=== PATIENT | female | born 1955 | race Caucasian/White ===

== ENCOUNTER 2019-11-23 20:47 | Inpatient (IN) | payer OTHER ==
[~2019-11-23] VITALS: Ht 149.9 cm; Wt 56.9 kg
--- NOTE | 2019-11-23 21:53 | NUR ---
PT ARRIVES TO ED WITH LOWER ABD PAIN, AND SOB. PT REPORTS SHE FEELS VERY DISTENDED. PT REPORTS SHE HAS HAD A PARACENTISIS BEFORE BUT THIS FEELS DIFFERENT. PT REPORTS THAT IT IS DIFFICULT TO TAKE A DEEP BREATH. PT DENIES TRAUMA OR CHEST PAIN. PT CONNECTED TO MONITRS AND PIV PLACED AND LABS DRAWN. CALL LIGHT IN REACH AND FALL PRECAUTIONS IN PLACE.
[2019-11-23 22:23] LABS: ALBUMIN 2.2 g/dL (3.4-5.0); ANION GAP 8 mmol/L (5-15); CALCIUM 9.9 mg/dL (8.5-10.1); CHLORIDE 97 mmol/L (98-107)
[2019-11-23 22:26] LABS: ALANINE AMINOTRANSFERASE 49 U/L (12-78); ALKALINE PHOSPHATASE 255 U/L (45-117); BILIRUBIN,TOTAL 6.8 mg/dL (0.2-1.0); CREATININE 0.99 mg/dL (0.55-1.02); TOTAL PROTEIN 7.1 g/dL (6.4-8.2)
[2019-11-23 22:27] LABS: INTERNATIONAL NORMALIZED RATIO 1.28 (0.93-1.1); PROTHROMBIN TIME 13.6 Seconds (9.6-11.5)
[2019-11-23 22:31] LABS: BASOPHILS # (AUTO) 0.06 x10^3/uL (0-0.1); BASOPHILS % (AUTO) 1 % (0-1); EOSINOPHILS # (AUTO) 0.21 x10^3/uL (0-0.4); EOSINOPHILS % (AUTO) 3 % (1-7); LYMPHOCYTES # (AUTO) 0.95 x10^3/uL (1-3.4); LYMPHOCYTES % (AUTO) 11 % (22-44); MD MORPH REVIEW ONLY; MEAN CORPUSCULAR HEMOGLOBIN 36.3 pg (27.0-34.8); MEAN CORPUSCULAR VOLUME 106.7 fL (80-100); MONOCYTES # (AUTO) 1.18 x10^3/uL (0.2-0.8); MONOCYTES % (AUTO) 14 % (2-9); NEUTROPHILS # (AUTO) 6.12 x10^3/uL (1.8-6.8); NEUTROPHILS % (AUTO) 72 % (42-75); PLATELET COUNT 145 x10^3/uL (130-400); RED BLOOD COUNT 3.12 x10^6/uL (3.82-5.3); RED CELL DISTRIBUTION WIDTH 16.1 % (9.6-15.2)
[2019-11-23 22:44] LABS: <PLATELET ESTIMATE> ADEQUATE; ANISOCYTOSIS 1+
[2019-11-23] MEDS ORDERED: SODIUM CHLORIDE 0.9% 1,000ML IVBOLUS ONE (23:30)
--- NOTE | 2019-11-23 23:35 | NUR ---
pT MEDICATED PER EMAR, GIVEN WA BLANKET.
--- NOTE | 2019-11-24 00:04 | NUR ---
Report recevied from ELSIE Nicholas. This RN to assume care.
--- NOTE | 2019-11-24 00:04 | NUR ---
Report to Shayy ZIMMERMAN, informed of low bp earlier and need for repeat vitals once fluid bolus is complete. Informed pt has prominent right pleural effusion.
[2019-11-24] MEDS ORDERED: CEFTRIAXONE PMX 1GM/50ML 50 ML IVPB ONE (00:30)
[2019-11-24] MEDS ORDERED: AZITHROMYCIN 500 MG in SODIUM CHLORIDE 0.9% 250 ML IVPB ONE (00:30)
[2019-11-24] MEDS ORDERED: CEFTRIAXONE PMX 1GM/50ML 50 ML ONE (00:52)
--- NOTE | 2019-11-24 01:14 | NUR ---
unable to do CT until 0200. waiting for covid terminal clean CT room 1.
--- NOTE | 2019-11-24 01:50 | NUR ---
BREAK RN: PT MEDICATED PER EMAR. 5 RIGHTS ADDRESSED. PT DENIES ANY NEEDS AT THIS TIME. ALL VITALS STABLE. WILL CONTINUE TO MONITOR
--- NOTE | 2019-11-24 01:59 | NUR ---
BREAK RN: HOSPITALIST AT BEDSIDE EVALUATING PT
[2019-11-24] MEDS ORDERED: OMNIPAQUE 350 MG/ML, 100ML BOTTLE ONE (02:26)
[2019-11-24 02:47] LABS: CULTURE INDICATED? YES; MICROSCOPIC INDICATED
[2019-11-24] MEDS ORDERED: FUROSEMIDE 40 MG/4 ML IV ONE (03:30)
[2019-11-24] MEDS ORDERED: LORazepam 2 MG/ML, 1ML ONE (04:21)
--- NOTE | 2019-11-24 04:27 | NUR ---
PT RESTING IN BED, ATIVAN GIVEN PER DR LOZANO FOR ANXIETY, PT REFUSING IV LASIX AT THIS TIME, WOULD LIKE OT TRY TO SLEEP A BIT.
[2019-11-24] MEDS ORDERED: LORazepam 2 MG/ML, 1ML IVPush ONE (04:30)
[2019-11-24] MEDS ORDERED: DILTIAZEM 5 MG/ML, 5ML ONE (05:03)
--- NOTE | 2019-11-24 05:13 | NUR ---
Patient's WOB increasing, HR increasing. CT results back. Contacted Dr. Souza regarding patient's condition who came down to see patient. Suggested optiflow and asked about potential IR intervention in the am. Harley ordered Cardizem, 20mg IVP. No other orders.
[2019-11-24] MEDS ORDERED: DILTIAZEM 5 MG/ML, 5ML IVPush ONE (05:30)
--- NOTE | 2019-11-24 06:17 | NUR ---
Patient placed on optiflow by RT. 50% O2 on 40 lpm. Patient tolerating.
[2019-11-24] MEDS ORDERED: SUCCINYLCHOLINE 20 MG/ML, 10ML IVPush ONE (07:30)
[2019-11-24] MEDS ORDERED: ETOMIDATE 20 MG/10 ML IVPush ONE (07:30)
[2019-11-24 07:33] LABS: O2 FLOW 35 L/min
--- NOTE | 2019-11-24 07:35 | NUR ---
RECEIVED REPORT FROM SIMONE. PT UP RIGHT ON GURNEY SLEEPING, NAD WITH EQUAL CHEST RISE/FALL, OPTIFLOW IN PLACE, NO NEEDS AT THIS TIME, CALL LIGHT WITHIN REACH,
--- NOTE | 2019-11-24 07:40 | NUR ---
MOVED PATIENT TO ROOM 39 FOR INTUBATION.
[2019-11-24] MEDS ORDERED: LIDOCAINE 1%, 10ML ONE (07:58)
--- NOTE | 2019-11-24 08:00 | NUR ---
RT AT BS, PT MEDICATED PRIOR TO ETT PLACEMENT BY DR CANAS, 7.5MM ETT PLACED AT 25CM TO TOOTHLINE, HOB AT 30 DEG, PT CALM AT THIS TIME.
[2019-11-24] MEDS ORDERED: MIDAZOLAM HCL 50 MG in SODIUM CHLORIDE 0.9% 40 ML IV PRN (08:02)
[2019-11-24] MEDS ORDERED: FENTANYL PF 100 MCG/2ML ONE ×3 (08:08→09:29)
--- NOTE | 2019-11-24 08:08 | NUR ---
PHARMACY REQUEST SLIP SENT TO PHARMACY FOR VERSED DRIP.
[2019-11-24] MEDS ORDERED: FENTANYL PF 100 MCG/2ML IVPush ONE ×2 (08:30→09:00)
[2019-11-24] MEDS ORDERED: SPIRONOLACTONE 100 MG TABLET PO SCH (09:00)
[2019-11-24] MEDS ORDERED: FUROSEMIDE 40 MG TABLET PO SCH (09:00)
--- NOTE | 2019-11-24 09:25 | NUR ---
SPOKE TO DR ESPINOZA WHILE AWAITING [facility] TO SEE PT, OK TO GIVE 100MG FENTANYL X2 IF PT CONTINUES TO RESIST VENT DESPITE VERSED INFUSION.
--- NOTE | 2019-11-24 09:45 | NUR ---
[facility] AT Addendum: 11/24/19 at 0955 by GODWIN [facility] AT , AWARE OF PT VS.
--- NOTE | 2019-11-24 09:56 | NUR ---
OK TO HOLD DIURETICS AT THIS TIME PER [facility].
[2019-11-24] MEDS ORDERED: ALBUMIN HUMAN 25% 200 ML IV ONE (10:00)
[2019-11-24] MEDS: PROPOFOL 100 ML IV PRN ×2 (10:24→21:37)
[2019-11-24] MEDS ORDERED: SENNA/DOCUSATE TABLET NG PRN (10:30)
[2019-11-24] MEDS ORDERED: LIDOCAINE-MPF 1%, 2ML ENDO PRN (10:30)
[2019-11-24] MEDS ORDERED: DEXTROSE 50%, 50ML SYRINGE IVPush PRN (10:30)
[2019-11-24] MEDS ORDERED: PHARMACY MAY ADJ FOR RENAL FX MC SCH (10:30)
[2019-11-24] MEDS ORDERED: LACTULOSE 20 GM/30 ML UDC NG PRN (10:30)
[2019-11-24] MEDS: NOREPINEPHRINE 8 MG in SODIUM CHLORIDE 0.9% 242 ML IV PRN (10:30)
[2019-11-24] MEDS ORDERED: GLUCAGON 1 MG IM PRN (10:30)
[2019-11-24] MEDS ORDERED: BISACODYL 10 MG SUPP PR PRN (10:30)
[2019-11-24] MEDS ORDERED: ACETAMINOPHEN 650 MG SUPP PR PRN (10:30)
[2019-11-24] MEDS ORDERED: DEXTROSE 4 GM TAB.CHEW PO PRN (10:30)
[2019-11-24] MEDS ORDERED: SENNA 176 MG/5 ML ORAL SOL NG PRN (10:30)
--- NOTE | 2019-11-24 11:05 | NUR ---
PT TOLERATING VENT WITH CURRENT MEDS AT THIS TIME, COMFORT MEASURES PROVIDED, WCT[facility].
--- NOTE | 2019-11-24 11:10 | NUR ---
CALLED IR TO NOTIFY CONSENT IS SIGNED, AWAITING RIGHT THORACENTESIS.
[2019-11-24] MEDS ORDERED: FURO-93 PO (11:33)
[2019-11-24] MEDS ORDERED: VITA1TAB PO (11:33)
[2019-11-24] MEDS ORDERED: SPIR25TA5 PO (11:33)
--- NOTE | 2019-11-24 11:54 | NUR ---
ZAHEER, SOFY FLORES, CONTACT NUMBER [phone].
--- NOTE | 2019-11-24 12:02 | NUR ---
PT CONTINUES TO TOLERATE VENT WITH CURRENT MEDS, COMFORT MEASURES PROVIDED, RESTRAINTS REPOSITIONED, CONRAD DRAINING TO GRAVITY, NGT SUCTIONING WITH LCS, HOB REMAINS ELEVATED.
--- NOTE | 2019-11-24 12:25 | NUR ---
CALLED DR MARTINEZ TO REQUEST CL PLACEMENT BY IR.
--- NOTE | 2019-11-24 13:03 | NUR ---
PT TOLERATING VENT WITH CURRENT MEDS, COMFORT MEASURES PROVIDED, CONRAD DRAINING TO GRAVITY, NGT SUCTIONING WITH LCS, HOB REMAINS ELEVATED.
--- NOTE | 2019-11-24 13:45 | NUR ---
IR AT BS
--- NOTE | 2019-11-24 13:58 | NUR ---
PT TOLERATING VENT WITH CURRENT MEDS, COMFORT MEASURES PROVIDED, CONRAD DRAINING TO GRAVITY, NGT SUCTIONING WITH LCS, HOB REMAINS ELEVATED, PT CALMER AFTER THORACENTESIS.
--- NOTE | 2019-11-24 14:45 | NUR ---
Float RN: Pt linens changed & pt placed on waffle matteress & positioned w/ pillows under elbows & between knees for pt comfort & to prevent skin breakdown
[2019-11-24] MEDS ORDERED: LIDOCAINE 1%-EPI 1:100K, 20ML ONE (15:28)
--- NOTE | 2019-11-24 15:32 | NUR ---
PT CONTINUES TO TOLERATE VENT WITH OCCAS ADJUSTMENTS TO MEDS, COMFORT MEASURES PROVIDED, CONRAD DRAINING TO GRAVITY, NGT SUCTIONING WITH LCS, HOB REMAINS ELEVATED
--- NOTE | 2019-11-24 16:04 | NUR ---
CHEST TUBE TO RIGHT LATERAL CHEST INSERTED BY DR MONTERO, CONTINUOUS WALL SUCTION >80MMHZ, NO AIRLEAKS/BUBBLING DETECTED.
--- NOTE | 2019-11-24 16:16 | NUR ---
DR MONTERO REMAINS AT TP PLACE CL. Addendum: 11/24/19 at [address] MONTERO REMAINS AT TO PLACE CL.
--- NOTE | 2019-11-24 16:46 | NUR ---
ASSISTED PRIMARY RN IN BED CHANGING
--- NOTE | 2019-11-24 17:01 | NUR ---
PT CONTINUES TO TOLERATE VENT WITH OCCAS ADJUSTMENTS TO MEDS, COMFORT MEASURES PROVIDED WITH WAFFLE MATTRESS IN PLACE; CONRAD DRAINING TO GRAVITY WITH CONCENTRATED UOP; NGT TO LEFT NARE ON LCS WITH BILEOUS/LIGHT BROWN DRAINAGE, HOB REMAINS ELEVATED; CHEST TUBE TO RIGHT LATERAL CHEST ON CONTINUOUS WALL SUCTION >80MMHZ WITH NO AIRLEAKS/BUBBLING DETECTED, SEROSANG DRAINAGE NOTED.
[2019-11-24] MEDS: HEPARIN 5,000 UNITS/ML, 1ML SQ SCH ×2 (17:14→21:37)
[2019-11-24] MEDS: PANTOPRAZOLE 40 MG IV IV SCH (17:14)
--- NOTE | 2019-11-24 17:48 | NUR ---
IN ROOM WITH MIREYA ZIMMERMAN AND DR MONTERO TO ASSIST WITH CHEST TUBE PLACEMENT AND CENTRAL LINE PLACEMENT. PAPR WORN THROUGHOUT ENTIRITY. Addendum: 11/24/19 at 1749 by KAVITHA MENDY NOTE GOLDIE Denny
--- NOTE | 2019-11-24 18:03 | NUR ---
PT TOLERATING VENT AT CURRENT MEDS, COMFORT MEASURES PROVIDED; CONRAD DRAINING TO GRAVITY WITH CONCENTRATED UOP; NGT TO LEFT NARE ON LCS WITH BILEOUS/LIGHT BROWN DRAINAGE, HOB REMAINS ELEVATED; CHEST TUBE TO RIGHT LATERAL CHEST ON CONTINUOUS WALL SUCTION >80MMHZ WITH NO AIRLEAKS/BUBBLING DETECTED, SEROSANG DRAINAGE NOTED.
--- NOTE | 2019-11-24 18:38 | NUR ---
Pt to be admitted to ICU when room 2 is clean. Report called to Hector.
--- NOTE | 2019-11-24 19:00 | NUR ---
REPORT GIVEN TO VIRAJ.
[2019-11-24] MEDS: SODIUM CHLORIDE FLUSH 10ML SYR IVF SCH (21:38)
[2019-11-24] MEDS: PHENYLEPHRINE 50 MG in SODIUM CHLORIDE 0.9% 245 ML IV PRN (22:30)
[2019-11-24] MEDS: SODIUM CHLORIDE 0.9% 1,000 ML IV SCH (22:30)
[2019-11-24 23:35] VITALS: BP 86/52
[2019-11-25] MEDS: CEFTRIAXONE PMX 1GM/50ML 50 ML IV SCH (01:06)
[2019-11-25] MEDS: AZITHROMYCIN 500 MG in SODIUM CHLORIDE 0.9% 250 ML IV SCH (01:41)
[2019-11-25 04:30] LABS: ANION GAP 6 mmol/L (5-15); CALCIUM 9.5 mg/dL (8.5-10.1); CHLORIDE 107 mmol/L (98-107); CREATININE 0.69 mg/dL (0.55-1.02)
[2019-11-25] MEDS: HEPARIN 5,000 UNITS/ML, 1ML SQ SCH ×3 (05:58→22:59)
[2019-11-25 06:12] LABS: MD YES; MEAN CORPUSCULAR HEMOGLOBIN 35.8 pg (27.0-34.8); MEAN CORPUSCULAR HGB CONC 33.6 g/dL (32.4-35.8); MEAN CORPUSCULAR VOLUME 106.4 fL (80-100); MEAN PLATELET VOLUME 5.7 fL (7.4-10.4); PLATELET COUNT 117 x10^3/uL (130-400); RED CELL DISTRIBUTION WIDTH 15.5 % (9.6-15.2)
[2019-11-25 06:14] LABS: BAND#(MANUAL) 0.23 x10^3/uL; BANDS%(MANUAL) 2 % (0-7); EOS#(MANUAL) 0.23 x10^3/uL (0.0-0.4); EOS% (MANUAL) 2 % (1-7); LYMPH#(MANUAL) 1.03 x10^3/uL (1-3.4); LYMPHS% (MANUAL) 9 % (22-44); MONOS#(MANUAL) 1.14 x10^3/uL (0.3-2.7); MONOS% (MANUAL) 10 % (2-9); MYELOCYTES# (MANUAL) 0.11 x10^3/uL (0-0); MYELOCYTES% (MANUAL) 1 % (0-0); SEG#(MANUAL) 8.66 x10^3/uL (1.8-6.8); SEGS% (MANUAL) 76 % (42-75)
[2019-11-25 06:16] LABS: <PLATELET ESTIMATE> DECREASED; <PLT MORPHOLOGY> NORMAL PLT MORPH; ACANTHOCYTES 1+; ANISOCYTOSIS 1+; POLYCHROMASIA 1+
[2019-11-25 06:17] LABS: ECHINOCYTES 1+
[2019-11-25] MEDS: PROPOFOL 100 ML IV PRN ×2 (08:10→21:03)
[2019-11-25] MEDS: SODIUM CHLORIDE FLUSH 10ML SYR IVF SCH ×2 (08:10→21:05)
[2019-11-25] MEDS: SODIUM CHLORIDE 0.9% 1,000 ML IV SCH ×2 (08:11→21:04)
[2019-11-25] MEDS: PANTOPRAZOLE 40 MG IV IV SCH (08:11)
[2019-11-25] MEDS ORDERED: FUROSEMIDE 40 MG/4 ML IV SCH (09:00)
[2019-11-25] MEDS ORDERED: MAGNESIUM SULFATE PMX 2GM/50ML 50 ML IV ONE (09:00)
[2019-11-25] MEDS ORDERED: SPIRONOLACTONE 100 MG TABLET PO SCH (09:00)
[2019-11-25] MEDS: PHENYLEPHRINE 50 MG in SODIUM CHLORIDE 0.9% 245 ML IV PRN ×2 (09:07→21:27)
[2019-11-25] MEDS: NOREPINEPHRINE 8 MG in SODIUM CHLORIDE 0.9% 242 ML IV PRN (23:38)
[2019-11-26] MEDS: CEFTRIAXONE PMX 1GM/50ML 50 ML IV SCH (00:54)
[2019-11-26] MEDS: AZITHROMYCIN 500 MG in SODIUM CHLORIDE 0.9% 250 ML IV SCH (01:39)
[2019-11-26] MEDS: FENTANYL PF 100 MCG/2ML IVPush PRN (02:23)
[2019-11-26 05:02] LABS: BASOPHILS # (AUTO) 0.03 x10^3/uL (0-0.1); BASOPHILS % (AUTO) 0 % (0-1); EOSINOPHILS # (AUTO) 0.54 x10^3/uL (0-0.4); EOSINOPHILS % (AUTO) 5 % (1-7); LYMPHOCYTES # (AUTO) 1.28 x10^3/uL (1-3.4); LYMPHOCYTES % (AUTO) 13 % (22-44); MD NO; MEAN CORPUSCULAR HEMOGLOBIN 35.8 pg (27.0-34.8); MEAN CORPUSCULAR HGB CONC 33.9 g/dL (32.4-35.8); MEAN CORPUSCULAR VOLUME 105.5 fL (80-100); MEAN PLATELET VOLUME 6.1 fL (7.4-10.4); MONOCYTES # (AUTO) 0.99 x10^3/uL (0.2-0.8); MONOCYTES % (AUTO) 10 % (2-9); NEUTROPHILS # (AUTO) 7.21 x10^3/uL (1.8-6.8); NEUTROPHILS % (AUTO) 72 % (42-75); PLATELET COUNT 130 x10^3/uL (130-400); RED BLOOD COUNT 3.01 x10^6/uL (3.82-5.3); RED CELL DISTRIBUTION WIDTH 15.9 % (9.6-15.2)
[2019-11-26 05:09] LABS: ANION GAP 7 mmol/L (5-15); CALCIUM 9.2 mg/dL (8.5-10.1); CHLORIDE 111 mmol/L (98-107); CREATININE 0.58 mg/dL (0.55-1.02)
[2019-11-26] MEDS: HEPARIN 5,000 UNITS/ML, 1ML SQ SCH ×3 (06:48→22:37)
[2019-11-26] MEDS: PANTOPRAZOLE 40 MG IV IV SCH (07:44)
[2019-11-26] MEDS: PROPOFOL 100 ML IV PRN (07:45)
[2019-11-26] MEDS: PHENYLEPHRINE 50 MG in SODIUM CHLORIDE 0.9% 245 ML IV PRN ×3 (07:45→22:35)
[2019-11-26] MEDS: ALBUMIN HUMAN 25% 100 ML IV SCH ×2 (10:35→18:40)
[2019-11-26] MEDS: SODIUM CHLORIDE FLUSH 10ML SYR IVF SCH ×2 (10:35→21:32)
--- NOTE | 2019-11-26 11:41 | NUR ---
TF GOAL: w/ propofol: OSMOLITE 1.2 @ 40ML/HR off propofol: 45ML/HR
[2019-11-26] MEDS ORDERED: AMIODARONE 150 MG in DEXTROSE 5% 100 ML IV ONE (15:00)
[2019-11-26] MEDS ORDERED: AMIODARONE 450 MG in DEXTROSE 5% 241 ML IV SCH (15:00)
[2019-11-26] MEDS: FILTER 0.22 MICRON IV PRN (15:08)
[2019-11-27] MEDS: PROPOFOL 100 ML IV PRN (00:26)
[2019-11-27] MEDS: CEFTRIAXONE PMX 1GM/50ML 50 ML IV SCH ×2 (00:27→23:56)
[2019-11-27] MEDS: ALBUMIN HUMAN 25% 100 ML IV SCH ×3 (02:23→17:19)
[2019-11-27] MEDS: AZITHROMYCIN 500 MG in SODIUM CHLORIDE 0.9% 250 ML IV SCH (02:26)
[2019-11-27] MEDS: FILTER 0.22 MICRON IV PRN (04:39)
[2019-11-27 04:49] LABS: BASOPHILS % (AUTO) 1 % (0-1); EOSINOPHILS # (AUTO) 0.46 x10^3/uL (0-0.4); EOSINOPHILS % (AUTO) 6 % (1-7); LYMPHOCYTES # (AUTO) 1.25 x10^3/uL (1-3.4); LYMPHOCYTES % (AUTO) 17 % (22-44); MD NO; MEAN CORPUSCULAR HEMOGLOBIN 36.4 pg (27.0-34.8); MEAN CORPUSCULAR HGB CONC 34.2 g/dL (32.4-35.8); MEAN CORPUSCULAR VOLUME 106.3 fL (80-100); MEAN PLATELET VOLUME 5.7 fL (7.4-10.4); MONOCYTES # (AUTO) 0.81 x10^3/uL (0.2-0.8); MONOCYTES % (AUTO) 11 % (2-9); NEUTROPHILS # (AUTO) 4.66 x10^3/uL (1.8-6.8); NEUTROPHILS % (AUTO) 64 % (42-75); PLATELET COUNT 114 x10^3/uL (130-400); RED BLOOD COUNT 2.52 x10^6/uL (3.82-5.3); RED CELL DISTRIBUTION WIDTH 15.8 % (9.6-15.2)
[2019-11-27 04:52] LABS: ANION GAP 9 mmol/L (5-15); CALCIUM 9.5 mg/dL (8.5-10.1); CHLORIDE 113 mmol/L (98-107); CREATININE 0.63 mg/dL (0.55-1.02)
[2019-11-27 05:06] LABS: TRIGLYCERIDES 58 mg/dL (50-200)
[2019-11-27] MEDS: HEPARIN 5,000 UNITS/ML, 1ML SQ SCH ×3 (05:58→21:32)
[2019-11-27] MEDS: PHENYLEPHRINE 50 MG in SODIUM CHLORIDE 0.9% 245 ML IV PRN ×2 (06:57→14:02)
[2019-11-27] MEDS: SODIUM CHLORIDE FLUSH 10ML SYR IVF SCH ×2 (09:00→21:32)
[2019-11-27] MEDS: POTASSIUM CHLORIDE 10% 40 MEQ/30 ML UDC PO SCH ×2 (11:03→21:31)
[2019-11-27] MEDS: PANTOPRAZOLE 40 MG IV IV SCH (11:03)
[2019-11-27] MEDS: VASOPRESSIN 20 UNIT in SODIUM CHLORIDE 0.9% 99 ML IV PRN ×2 (14:32→21:31)
[2019-11-27] MEDS: DEXMEDETOMIDINE 400 MCG in SODIUM CHLORIDE 0.9% 96 ML IV PRN (14:49)
[2019-11-27] MEDS ORDERED: AMIODARONE 450 MG in DEXTROSE 5% 241 ML IV SCH (15:00)
[2019-11-27] MEDS: MIDODRINE 5 MG TABLET NG SCH ×2 (15:10→21:32)
[2019-11-27] MEDS: NOREPINEPHRINE 8 MG in SODIUM CHLORIDE 0.9% 242 ML IV PRN (23:24)
[2019-11-27] MEDS: FENTANYL PF 100 MCG/2ML IVPush PRN (23:55)
[2019-11-28] MEDS: ALBUMIN HUMAN 25% 100 ML IV SCH ×3 (01:56→18:10)
[2019-11-28] MEDS: AZITHROMYCIN 500 MG in SODIUM CHLORIDE 0.9% 250 ML IV SCH (01:57)
[2019-11-28 04:18] LABS: ANION GAP 6 mmol/L (5-15); CALCIUM 10.1 mg/dL (8.5-10.1); CHLORIDE 116 mmol/L (98-107); CREATININE 0.66 mg/dL (0.55-1.02)
[2019-11-28 04:31] LABS: MEAN CORPUSCULAR HEMOGLOBIN 36.7 pg (27.0-34.8); MEAN CORPUSCULAR HGB CONC 34.5 g/dL (32.4-35.8); MEAN CORPUSCULAR VOLUME 106.3 fL (80-100); MEAN PLATELET VOLUME 6.2 fL (7.4-10.4); PLATELET COUNT 93 x10^3/uL (130-400); RED BLOOD COUNT 2.37 x10^6/uL (3.82-5.3); RED CELL DISTRIBUTION WIDTH 16.1 % (9.6-15.2)
[2019-11-28 04:32] LABS: BASOPHILS # (AUTO) 0.04 x10^3/uL (0-0.1); BASOPHILS % (AUTO) 1 % (0-1); EOSINOPHILS # (AUTO) 0.35 x10^3/uL (0-0.4); EOSINOPHILS % (AUTO) 7 % (1-7); LYMPHOCYTES % (AUTO) 19 % (22-44); MD SCAN; MONOCYTES # (AUTO) 0.56 x10^3/uL (0.2-0.8); MONOCYTES % (AUTO) 12 % (2-9); NEUTROPHILS # (AUTO) 2.91 x10^3/uL (1.8-6.8); NEUTROPHILS % (AUTO) 61 % (42-75)
[2019-11-28] MEDS: HEPARIN 5,000 UNITS/ML, 1ML SQ SCH ×3 (06:03→23:05)
[2019-11-28] MEDS: VASOPRESSIN 20 UNIT in SODIUM CHLORIDE 0.9% 99 ML IV PRN ×2 (06:04→15:39)
[2019-11-28] MEDS: MIDODRINE 5 MG TABLET NG SCH ×2 (08:57→18:09)
[2019-11-28] MEDS: PANTOPRAZOLE 40 MG IV IV SCH (08:58)
[2019-11-28] MEDS: SODIUM CHLORIDE FLUSH 10ML SYR IVF SCH ×2 (08:58→20:16)
[2019-11-28] MEDS: DEXMEDETOMIDINE 400 MCG in SODIUM CHLORIDE 0.9% 96 ML IV PRN (19:22)
[2019-11-28] MEDS ORDERED: LACTULOSE 20 GM/30 ML UDC PO PRN (19:30)
[2019-11-28] MEDS ORDERED: FUROSEMIDE 40 MG/4 ML IV ONE (19:30)
[2019-11-28] MEDS: FENTANYL PF 100 MCG/2ML IVPush PRN (23:06)
[2019-11-28] MEDS: NOREPINEPHRINE 8 MG in SODIUM CHLORIDE 0.9% 242 ML IV PRN (23:14)
[2019-11-29] MEDS: MIDODRINE 5 MG TABLET NG SCH ×4 (00:26→21:59)
[2019-11-29] MEDS: CEFTRIAXONE PMX 1GM/50ML 50 ML IV SCH (00:26)
[2019-11-29] MEDS: VASOPRESSIN 20 UNIT in SODIUM CHLORIDE 0.9% 99 ML IV PRN ×3 (00:26→19:54)
[2019-11-29] MEDS ORDERED: FUROSEMIDE 40 MG/4 ML ONE (02:20)
[2019-11-29] MEDS: ALBUMIN HUMAN 25% 100 ML IV SCH (02:27)
[2019-11-29] MEDS: AZITHROMYCIN 500 MG in SODIUM CHLORIDE 0.9% 250 ML IV SCH (02:28)
[2019-11-29 05:22] LABS: MEAN CORPUSCULAR HEMOGLOBIN 36.5 pg (27.0-34.8); MEAN CORPUSCULAR HGB CONC 33.9 g/dL (32.4-35.8); MEAN CORPUSCULAR VOLUME 107.5 fL (80-100); RED BLOOD COUNT 2.21 x10^6/uL (3.82-5.3); RED CELL DISTRIBUTION WIDTH 16.3 % (9.6-15.2)
[2019-11-29 05:29] LABS: ANION GAP 8 mmol/L (5-15); CALCIUM 10.2 mg/dL (8.5-10.1); CHLORIDE 116 mmol/L (98-107); CREATININE 0.75 mg/dL (0.55-1.02)
[2019-11-29 05:51] LABS: BASOPHILS # (AUTO) 0.01 x10^3/uL (0-0.1); BASOPHILS % (AUTO) 0 % (0-1); EOSINOPHILS # (AUTO) 0.23 x10^3/uL (0-0.4); EOSINOPHILS % (AUTO) 5 % (1-7); LYMPHOCYTES # (AUTO) 0.78 x10^3/uL (1-3.4); LYMPHOCYTES % (AUTO) 18 % (22-44); MD SCAN; MEAN PLATELET VOLUME 6.4 fL (7.4-10.4); MONOCYTES # (AUTO) 0.46 x10^3/uL (0.2-0.8); MONOCYTES % (AUTO) 11 % (2-9); NEUTROPHILS # (AUTO) 2.84 x10^3/uL (1.8-6.8); NEUTROPHILS % (AUTO) 66 % (42-75); PLATELET COUNT 81 x10^3/uL (130-400)
[2019-11-29] MEDS: HEPARIN 5,000 UNITS/ML, 1ML SQ SCH ×3 (06:25→21:59)
[2019-11-29] MEDS ORDERED: POTASSIUM CHLORIDE 10% 40 MEQ/30 ML UDC PO ONE (07:00)
[2019-11-29] MEDS: PANTOPRAZOLE 40 MG IV IV SCH (08:02)
[2019-11-29] MEDS: SODIUM CHLORIDE FLUSH 10ML SYR IVF SCH ×2 (08:02→22:00)
[2019-11-30] MEDS: AZITHROMYCIN 500 MG in SODIUM CHLORIDE 0.9% 250 ML IV SCH (00:01)
[2019-11-30] MEDS: CEFTRIAXONE PMX 1GM/50ML 50 ML IV SCH (00:01)
[2019-11-30] MEDS: VASOPRESSIN 20 UNIT in SODIUM CHLORIDE 0.9% 99 ML IV PRN ×2 (03:31→13:54)
[2019-11-30 04:14] LABS: MEAN CORPUSCULAR HEMOGLOBIN 36.2 pg (27.0-34.8); MEAN CORPUSCULAR HGB CONC 33.8 g/dL (32.4-35.8); MEAN CORPUSCULAR VOLUME 107.1 fL (80-100); MEAN PLATELET VOLUME 6.3 fL (7.4-10.4); PLATELET COUNT 74 x10^3/uL (130-400); RED BLOOD COUNT 2.34 x10^6/uL (3.82-5.3)
[2019-11-30 04:17] LABS: ANION GAP 4 mmol/L (5-15); CALCIUM 10.9 mg/dL (8.5-10.1); CHLORIDE 117 mmol/L (98-107); CREATININE 0.51 mg/dL (0.55-1.02)
[2019-11-30 04:18] LABS: TRIGLYCERIDES 25 mg/dL (50-200)
[2019-11-30 04:35] LABS: BASOPHILS # (AUTO) 0.03 x10^3/uL (0-0.1); BASOPHILS % (AUTO) 1 % (0-1); EOSINOPHILS % (AUTO) 4 % (1-7); LYMPHOCYTES # (AUTO) 0.73 x10^3/uL (1-3.4); LYMPHOCYTES % (AUTO) 15 % (22-44); MD SCAN; MONOCYTES # (AUTO) 0.69 x10^3/uL (0.2-0.8); MONOCYTES % (AUTO) 14 % (2-9); NEUTROPHILS # (AUTO) 3.36 x10^3/uL (1.8-6.8); NEUTROPHILS % (AUTO) 67 % (42-75)
[2019-11-30] MEDS: HEPARIN 5,000 UNITS/ML, 1ML SQ SCH ×2 (08:35→16:33)
[2019-11-30] MEDS: SODIUM CHLORIDE FLUSH 10ML SYR IVF SCH ×2 (08:35→21:46)
[2019-11-30] MEDS: PANTOPRAZOLE 40 MG IV IV SCH (08:35)
[2019-11-30] MEDS: MIDODRINE 5 MG TABLET NG SCH ×3 (08:36→21:45)
[2019-11-30] MEDS ORDERED: LIDOCAINE 1%, 20ML ONE (14:42)
[2019-11-30] MEDS ORDERED: DEXMEDETOMIDINE 400 MCG in SODIUM CHLORIDE 0.9% 96 ML IV PRN (18:00)
[2019-12-01] MEDS: HEPARIN 5,000 UNITS/ML, 1ML SQ SCH ×2 (00:17→09:18)
[2019-12-01] MEDS: CEFTRIAXONE PMX 1GM/50ML 50 ML IV SCH (00:17)
[2019-12-01] MEDS: AZITHROMYCIN 500 MG in SODIUM CHLORIDE 0.9% 250 ML IV SCH (00:17)
[2019-12-01 05:02] LABS: MEAN CORPUSCULAR HEMOGLOBIN 36.1 pg (27.0-34.8); MEAN CORPUSCULAR VOLUME 109.4 fL (80-100); PLATELET COUNT 76 x10^3/uL (130-400); RED BLOOD COUNT 2.36 x10^6/uL (3.82-5.3); RED CELL DISTRIBUTION WIDTH 16.2 % (9.6-15.2)
[2019-12-01 05:08] LABS: ANION GAP 3 mmol/L (5-15); CALCIUM 10.8 mg/dL (8.5-10.1); CHLORIDE 117 mmol/L (98-107)
[2019-12-01 05:10] LABS: BILIRUBIN, DIRECT 2.1 mg/dL (0.1-0.2); BILIRUBIN,INDIRECT 3.3 mg/dL (0.0-2.0); BILIRUBIN,TOTAL 5.4 mg/dL (0.2-1.0); CREATININE 0.58 mg/dL (0.55-1.02)
[2019-12-01] MEDS: VASOPRESSIN 20 UNIT in SODIUM CHLORIDE 0.9% 99 ML IV PRN ×2 (05:49→13:08)
[2019-12-01 05:54] LABS: BASOPHILS # (AUTO) 0.04 x10^3/uL (0-0.1); BASOPHILS % (AUTO) 1 % (0-1); EOSINOPHILS # (AUTO) 0.19 x10^3/uL (0-0.4); EOSINOPHILS % (AUTO) 3 % (1-7); LYMPHOCYTES # (AUTO) 0.92 x10^3/uL (1-3.4); LYMPHOCYTES % (AUTO) 17 % (22-44); MD SCAN; MONOCYTES # (AUTO) 0.55 x10^3/uL (0.2-0.8); MONOCYTES % (AUTO) 10 % (2-9); NEUTROPHILS # (AUTO) 3.87 x10^3/uL (1.8-6.8); NEUTROPHILS % (AUTO) 69 % (42-75)
[2019-12-01] MEDS: PANTOPRAZOLE 40 MG IV IV SCH (09:18)
[2019-12-01] MEDS: MIDODRINE 5 MG TABLET NG SCH (09:18)
[2019-12-01] MEDS: SODIUM CHLORIDE FLUSH 10ML SYR IVF SCH (09:19)
== END 2019-12-01 16:51 | disposition hospice, home (50) | DRG 871 ==
LOC: ED 21:47 → EDIP 11-24 02:21 → ICU 11-24 20:38 → CCU 11-26 11:24 → ICU 11-26 21:13 → CCU 11-29 14:28
PROVIDERS: ADMIT Internal Medicine; ATTEND Internal Medicine
PROC: 0BH17EZ Insertion of Endotracheal Airway into Trachea, Via Natural or Artificial Opening (ICD-10-PCS; principal; 2019-11-24)
PROC: 02H633Z Insertion of Infusion Device into Right Atrium, Percutaneous Approach (ICD-10-PCS; 2019-11-24)
PROC: B548ZZA Ultrasonography of Superior Vena Cava, Guidance (ICD-10-PCS; 2019-11-24)
PROC: 0W993ZZ Drainage of Right Pleural Cavity, Percutaneous Approach (ICD-10-PCS; 2019-11-24)
PROC: 5A1945Z Respiratory Ventilation, 24-96 Consecutive Hours (ICD-10-PCS; 2019-11-24)
PROC: 5A1935Z Respiratory Ventilation, Less than 24 Consecutive Hours (ICD-10-PCS; 2019-11-29)
PROC: 0JH63XZ Insertion of Tunneled Vascular Access Device into Chest Subcutaneous Tissue and Fascia, Percutaneous Approach (ICD-10-PCS; 2019-11-30)
PROC: 0W9930Z Drainage of Right Pleural Cavity with Drainage Device, Percutaneous Approach (ICD-10-PCS; 2019-11-30)
DX: A41.9 Sepsis, unspecified organism (principal); G93.41 Metabolic encephalopathy; J18.9 Pneumonia, unspecified organism; J96.01 Acute respiratory failure with hypoxia; J95.811 Postprocedural pneumothorax; E87.1 Hypo-osmolality and hyponatremia; K80.10 Calculus of gallbladder with chronic cholecystitis without obstruction; Z99.11 Dependence on respirator [ventilator] status; J91.8 Pleural effusion in other conditions classified elsewhere; D53.9 Nutritional anemia, unspecified; D69.6 Thrombocytopenia, unspecified; E83.42 Hypomagnesemia; E87.6 Hypokalemia; E88.09 Other disorders of plasma-protein metabolism, not elsewhere classified; K70.31 Alcoholic cirrhosis of liver with ascites; Z51.5 Encounter for palliative care; Z66 Do not resuscitate; F10.10 Alcohol abuse, uncomplicated; Y90.9 Presence of alcohol in blood, level not specified; Z79.899 Other long term (current) drug therapy; Z88.0 Allergy status to penicillin; Z88.8 Allergy status to other drugs, medicaments and biological substances; Z20.828 Contact with and (suspected) exposure to other viral communicable diseases
CPT/HCPCS: 32555; 36415; 36600; 84145; 89051; 96365; 96367; 96375; 99285; J3490; 71045; 71275; 76700; 80048; 80053; 81001; 82140; 82247; 82248; 82533; 82570; 82803; 82962; 83605; 83615; 83690; 83735; 83880; 84157; 84443; 84478; 85025; 85610; 85730; 87040; 87070; 87081; 87086; 87205; 88112; 88305; 93005; 93306; 94002; 94003; 94150; G0378; J0456; J0696; J1644; J1940; J2250; J2704; J3010; J7060; P9047; Q9967; C1729; C9113; J0282; J0330; J2060; J2370; J3475; J7030; J7050